=== PATIENT | female | born 1995 | race Two or more races ===

== ENCOUNTER 2017-05-01 10:37 | Emergency (ER) | payer OTHER ==
[2017-05-01 10:44] VITALS: BP 116/71; PULSE 62; RESP 16; TEMP 98.6; O2SAT 97
[2017-05-01] MEDS ORDERED: IBUPROFEN 600 MG TAB PO ONE (10:46)
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
== END 2017-05-01 11:14 | disposition home or self-care (01) ==
LOC: CED 10:37
DX: S60.222A Contusion of left hand, initial encounter (principal); W22.8XXA Striking against or struck by other objects, initial encounter
CPT/HCPCS: 73130-PO

== ENCOUNTER 2018-12-07 20:39 | Emergency (ER) | payer OTHER ==
--- NOTE | 2018-12-07 20:52 | EDPHY ---
H & P Time Seen by Provider: 12/07/18 20:49 HPI/ROS: CC: lower abdominal pain, . HPI: This 23-year-old 1 para 0 female presents to the emergency department tonight complaining of lower abdominal cramping that increased this evening. She states she had cramping all last week but normally has severe menstrual cramps. However, she had a test 4 days ago which was positive and she saw the RN at her clinic today and they did another test which she states they did not tell her the results of. The 1st day of her last menstrual period was 10/30/2018. She rates the pain at 6/10. It is worse when she stands and walks. She denies vaginal bleeding or unusual vaginal discharge. She has no history of sexually transmitted infections. REVIEW OF SYSTEMS: Constitutional: No fever, no chills. ENT: No sore throat. Gastrointestinal: See HPI. Genitourinary: No hematuria. Musculoskeletal: No back pain. Skin: No rashes. Neurological: No headache. Source: Patient Exam Limitations: No limitations - Medical/Surgical History PMH: Past medical history denied Past surgical history denied Family history mother had a bowel obstruction at age 18 No known drug allergies No current medications. Previously she was on an antidepressant, ibuprofen, and a muscle relaxer but she has not taken these for over a month. Primary care provider is at the [facility] Other PMH: DENIES - Social History Smoking Status: Never smoked Additional Social History: The patient is here with her significant other this evening. She has smoked tobacco products for approximately a year but has recently quit. She has an occasional alcoholic beverage until recently. She denies illicit or recreational drug use. - Physical Exam Exam: General Appearance: Alert, no distress. Eyes: Pupils equal and round no pallor or injection. ENT, Mouth: Mucous membranes are moist. Respiratory: There are no retractions, lungs are clear to auscultation. Cardiovascular: Regular rate and rhythm. Gastrointestinal: Abdomen is soft mild tenderness to palpation over the left lower quadrant. No rebound, guarding, or rigidity. No CVA tenderness to percussion. : deferred Neurological: Awake and alert, sensory and motor exams grossly normal. Skin: Warm and dry, no rashes. Musculoskeletal: Neck is supple, nontender. Extremities are symmetrical, full range of motion. Psychiatric: Patient is oriented X 3, there is no agitation. DIFFERENTIAL DIAGNOSIS: After history and physical exam differential diagnosis was considered for but not limited to and in no particular order: Early intrauterine , miscarriage, ectopic , PID, UTI Constitutional: Initial Vital Signs Temperature (C) 99.3 F 12/07/18 20:51 Heart Rate 73 12/07/18 20:51 Respiratory Rate 16 12/07/18 20:51 Blood Pressure 117/77 12/07/18 20:51 O2 Sat (%) 97 12/07/18 20:51 O2 Delivery Mode Room Air Allergies/Adverse Reactions: No Known Allergies Allergy (Verified 05/01/17 10:43) Home Medications: Medication Instructions Recorded NK [No Known Home Meds] 05/01/17 Medical Decision Making ED Course/Re-evaluation: The patient was seen and examined. Vital signs reviewed. Her urine test was positive. Her quantitative HCG was 12,131. A CBC was normal. She is O positive. Ultrasound shows a gestational sac and yolk sac but no pole and a left corpus luteum cyst. The results were discussed with the patient and her significant other and she understands the importance of following up in the next 48 hours with her PCP for a repeat beta HCG. - Data Points Point of Care Test Results: CBC CBC Collection Date 12/07/18 CBC Collection Time 21:10 WBC 6.21 RBC 4.69 HGB 13.6 HCT 39.9 PLT 268 Neut # 3.40 Neut 54.7 LYMPH # 2.16 LYMPH 34.8 MCV 85.1 Urine Collection Date 12/07/18 Collection Time 21:00 HCG Results Positive Departure - Departure Disposition: Home, Routine, Self-Care Clinical Impression: Abdominal pain, test positive Condition: Good Instructions: (ED) Additional Instructions: Call tomorrow to arrange follow up with your OB/PCP in 2-3 days. You may need a repeat blood test (Quantitative beta-HCG). Return to the ER if severe pain, bleeding, or any other concerns. Referrals: JACK GIMENEZ [Other] - As per Instructions
[2018-12-07 22:57] VITALS: BP 113/69
== END 2018-12-07 23:35 | disposition home or self-care (01) ==
LOC: CED 20:39
DX: O99.89 Other specified diseases and conditions complicating pregnancy, childbirth and the puerperium (principal); R10.30 Lower abdominal pain, unspecified; O34.80 Maternal care for other abnormalities of pelvic organs, unspecified trimester; N83.12 Corpus luteum cyst of left ovary; Z3A.00 Weeks of gestation of pregnancy not specified; Z87.891 Personal history of nicotine dependence
CPT/HCPCS: 81025-ER; 85025-QW-ER; 99284-ER